=== PATIENT | male | born 1955 | race African-American/Black ===

== ENCOUNTER 2020-12-06 10:23 | Emergency (ER) | payer OTHER, MEDICARE, SELFPAY ==
[~2020-12-06] VITALS: Ht 180.3 cm; Wt 85.7 kg
--- NOTE | 2020-12-06 10:25 | NUR ---
TO BED AMBULATORY
[2020-12-06 10:35] VITALS: BP 103/68
--- NOTE | 2020-12-06 10:35 | NUR ---
SEEN AND EXAMINED BY CAROLYN.
--- NOTE | 2020-12-06 10:40 | NUR ---
65 y/o M BIB self from home with c/c COVID-19 symptoms. Patient A&Ox4, ambulatory, reports COVID symptoms since 11/28/20. Patient states seen by Urgent Care for symptoms of body aches, sore throat, fatigue/weakness 12/01/20; discharged with ABX. Patient compliant with ABX, and returned on Monday for COVID test. Pt reports testing + for Covid. Denies any nausea, vomiting, diarrhea, SOB, chest pain, urinary symptoms, fever. 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 VSS; SpO2 97% on room air; HR 86. Bed locked in lowest position, side rails x 1, call light in reach. PMH/Meds: Denies NKA Sx: Denies
[2020-12-06] MEDS ORDERED: KETOROLAC 30 MG/ML VIAL IVP ONE (10:50)
[2020-12-06] MEDS ORDERED: BENZONATATE 100 MG CAPLF PO SCH (10:50)
[2020-12-06] MEDS ORDERED: DEXAMETHASONE 4 MG/ML VIAL IVP ONE (10:50)
--- NOTE | 2020-12-06 10:57 | NUR ---
Blood sample collected, given to CPT Beti at ER bedside.
[2020-12-06] MEDS ORDERED: KETOROLAC 30 MG/ML VIAL ONE (10:58)
[2020-12-06] MEDS ORDERED: BENZONATATE 100 MG CAPLF PO ONE (10:58)
[2020-12-06] MEDS ORDERED: DEXAMETHASONE 10 MG/ML VIAL ONE (10:58)
--- NOTE | 2020-12-06 11:03 | NUR ---
EMT at bedside for EKG
--- NOTE | 2020-12-06 11:05 | NUR ---
EKG PERFORMED AT BEDSIDE. EKG READS SINUS RHYTHM @ 82
[2020-12-06 11:21] LABS: BASOPHILS % (AUTO) 0.9 % (0.0-2.0); HEMATOCRIT 46.5 % (36-52); HEMOGLOBIN 15.5 g/dL (12.0-18.0); LYMPHOCYTES # (AUTO) 0.6 K/uL (2.0-11.5); LYMPHOCYTES % (AUTO) 14.6 % (20.5-51.1); MEAN CORPUSCULAR HEMOGLOBIN 29 pg (27-31); MEAN CORPUSCULAR HGB CONC 33 g/dL (33-37); MEAN CORPUSCULAR VOLUME 85.3 fL (80-94); MONOCYTES # (AUTO) 0.4 K/uL (0.8-1.0); MONOCYTES % (AUTO) 10.9 % (1.7-9.3); NEUTROPHILS % (AUTO) 73.6 % (42.2-75.2); PLATELET COUNT (AUTO) 186 K/uL (140-450); RED BLOOD CELL COUNT(AUTO) 5.45 MIL/uL (4.20-6.10); RED CELL DISTRIBUTION WIDTH 13.5 % (11.6-13.7); WHITE BLOOD COUNT (AUTO) 4.1 K/uL (4.8-10.8)
--- NOTE | 2020-12-06 11:28 | NUR ---
RAD at bedside.
[2020-12-06 11:35] LABS: ANION GAP 15.7 (8-16); CARBON DIOXIDE 23.2 mmol/L (21-32); CREATININE 1.1 mg/dL (0.6-1.3); POTASSIUM 3.9 mmol/L (3.5-5.1)
--- NOTE | 2020-12-06 11:43 | NUR ---
Patient reports positive relief to sore throat and muscle aches; rates pain 8/10.
[2020-12-06 12:23] VITALS: BP 109/70
--- NOTE | 2020-12-06 12:26 | NUR ---
Patient states pain 5/10. All pt needs met at this time. VSS; SpO2 94% on room air, respirations even/unlabored.
[2020-12-06] MEDS ORDERED: BENZ-196 PO (12:37)
[2020-12-06] MEDS ORDERED: PRED20TA5 PO (12:37)
[2020-12-06] MEDS ORDERED: ALBU0.0912 IH (12:37)
--- NOTE | 2020-12-06 12:45 | NUR ---
Patient discharged with v/s stable. Written and verbal after care instructions given and explained. Patient alert, oriented and verbalized understanding of instructions. Ambulatory with steady gait. All questions addressed prior to discharge. ID band removed. Patient advised to follow up with PMD. Rx of Albuterol Sulfate, Benzonatate, Prednisone given. Patient educated on indication of medication including possible reaction and side effects. Opportunity to ask questions provided and answered.
== END 2020-12-06 12:42 | disposition home or self-care (01) ==
LOC: MED 10:23
DX: U07.1 COVID-19 (principal); J12.82 Pneumonia due to coronavirus disease 2019; Z79.899 Other long term (current) drug therapy
CPT/HCPCS: 36415; 71045; 80048; 84484; 85025; 93005; 96374; 96375; 99285; J1100; J1885